=== PATIENT | female | born 1950 | race Caucasian/White ===

== ENCOUNTER → 2017-10-23 | Outpatient (CLI) | payer MEDICARE, OTHER ==
[~2017-10-23] MED LIST: OMEG500C7 PO; VITA1CAP46 PO; [UNRECOGNIZED DRUG - OTHER] PO
--- NOTE | 2017-10-23 13:47 | RADIOLOGY IMAGING REPORT ---
FACILITY: [facility] - [place] PATIENT NAME: LUCAS ROSARIO : [id number] MR: [id number] V: [id number] EXAM DATE: ORDERING PHYSICIAN: RACHEL FOREMAN TECHNOLOGIST: Linda Rajput PROCEDURE:BILATERAL DIGITAL SCREENING MAMMOGRAM WITH CAD ASSISTED INTERPRETATION & 3D TOMOSYNTHESIS COMPARISON:Prior mammograms 12/22/15, 11/17/14, 01/16/11. INDICATIONS:SCREENING FINDINGS: Moderately dense fibroglandular tissue is seen throughout the breasts. The parenchymal pattern has remained stable allowing for difference in mammographic technique & patient positioning. There is no evidence of malignant appearing mass, malignant appearing calcifications or other secondary sign of malignancy in either breast. DIAGNOSTIC CATEGORY 1--NEGATIVE. RECOMMENDATIONS: ROUTINE MAMMOGRAM AND CLINICAL EVALUATION. IMPRESSION: BIRADS 1: Negative. No significant abnormality is seen. Dictated by: Flavia Laws M.D. on 10/23/2017 at 13:41 Transcribed by: LEOPOLDO on 10/23/2017 at 13:45 Approved by: Flavia Laws M.D. on 10/23/2017 at 13:47 [facility]
== END ==
LOC: MAMO 01:16
PROVIDERS: ATTEND Physician Assistant
DX: Z12.31 Encounter for screening mammogram for malignant neoplasm of breast (principal)
CPT/HCPCS: 77063; 77067

== ENCOUNTER → 2018-04-03 | Outpatient (CLI) | payer MEDICARE, OTHER ==
[~2018-04-03] MED LIST changes: +CA C1TAB9 PO; +CHOL100034 PO; +CYAN50008 PO; +ESTR1PAT4 TD; +HYDR30CR10 TP; +LACT1CAP6 PO; +MULT-34 PO; +OMEG-108 PO
--- NOTE | 2018-04-03 21:18 | RADIOLOGY IMAGING REPORT ---
[place] [facility] [place] NAME: Skyla Arroyo : 1950 MR: [id number] V: [id number] EXAM DATE: ORDERING PHYSICIAN: RACHEL FOREMAN TECHNOLOGIST: Location: [facility] - [place] Patient: Skyla Arroyo : 1950 Visit/Account:[id number] Date of Sevice: 04/03/2018 DEXA Scan Clinical history: Screening. Comparison: 06/10/2008. LUMBAR SPINE: The bone mineral density (BMD) measured from L1-L4 correlates with a T-score of -0.7 which is within normal range as defined by the World Health Organization. The corresponding ri sk of fracture in the lumbar spine is not increased compared with a young adult reference population. This value has increased by 1.8 % since the prior study. More than 5% change is considered signifi cant. HIP: Bone mineral density (BMD) measured in the Left Total Hip region correlates with a T-score of -1.6. The T-score of the femoral neck is -1.7. The lower of the two T-scores is osteopenic as defined by the World Health Organization. The corresponding risk of fracture in the hip is moderately increased compared with a young adult r eference population. This value has decreased by two % since the prior study. More than 5% change i s considered significant. Bone mineral density (BMD) measured in the Left Femoral Neck region measures 0.801 g/cm?. IMPRESSION: 1. Lumbar spine: Within normal range. There has been no significant change in the bone mineral den sity since the previous exam. 2. Left Total Hip: Osteopenic. There has been no significant change in the bone mineral density sin ce the previous exam. The next DEXA scan of this patient should include the following sites: L1-L4 and Left hip. FRAX? WHO Fracture Risk Assessment Tool link: <http://www.shef.ac.uk/FRAX/tool.jsp?locationValue=9> PLEASE NOTE: 1) The World Health Organization defines low BMD as follows: T-score Normal > -1 Osteopenia < -1 and > -2.5 Osteoporosis < -2.5 without fractures Established osteoporosis < -2.5 with fractures 2) In general, you may wish to consider: Diagnosis Treatment Follow-up DEXA Normal BMD Prevention 2-3 years Osteopenia Prevention/therapy 1-2 years Osteoporosis Therapy Yearly 3) Fracture risk estimated from the T-score is more accurate for vertebral fractures (often spontane ous) than for hip fractures. Report Dictated By: Mono Stone MD at 04/03/2018 9:11 PM Report E-Signed By: Mono Stone MD at 04/03/2018 9:15 PM WSN:[id number]
== END ==
LOC: RAD 07:17
PROVIDERS: ATTEND Physician Assistant
DX: Z13.820 Encounter for screening for osteoporosis (principal); M85.88 Other specified disorders of bone density and structure, other site
CPT/HCPCS: 77080